=== PATIENT | male | born 1985 | race Caucasian/White ===

== ENCOUNTER 2019-01-17 10:19 | Day surgery (SDC) | payer OTHER ==
[~2019-01-17 10:19] MED LIST: BACITRACIN 50,000 UNIT in IV NORMAL SALINE 500ML BAG 500 ML IRR ONE; BUPIVACAINE-EPI 0.5%-1:200000 MPF 30 ML VIAL. INJ ONE; HYDROmorphone 2 MG/ML VIAL IV PRN; IV RINGERS,LACTATED 1000ML 1,000 ML IV SCH; LIDOCAINE 1% PF 2 ML VIAL. ID PRN; MORPHINE SULFATE 2 MG/ML VIAL. IV PRN; ONDANSETRON PF 4 MG/2 ML VIAL. IV PRN; PROCHLORPERAZINE 10 MG/2 ML VIAL. IV PRN; fentaNYL PF VIAL 100 MCG/2 ML VIAL IV PRN
[2019-01-17] MEDS ORDERED: SEVOFLURANE > 120 MINUTES. IH ONE (10:43)
[2019-01-17] MEDS ORDERED: fentaNYL PF VIAL 100 MCG/2 ML VIAL ONE ×4 (10:43→17:04)
[2019-01-17] MEDS ORDERED: ROCURONIUM 50 MG/5 ML VIAL. ONE ×2 (10:43→12:35)
[2019-01-17] MEDS ORDERED: OXYMETAZOLINE 0.05% NASAL SPRAY 30ML BOTTLE. NS ONE (10:44)
[2019-01-17] MEDS ORDERED: GLYCOPYRROLATE 1 MG/5 ML VIAL. ONE (10:44)
[2019-01-17] MEDS ORDERED: LIDOCAINE 2% PF 5 ML VIAL. ONE (10:44)
[2019-01-17] MEDS ORDERED: CHLORHEXIDINE 0.12% 15 ML MOUTHWASH. ONE (10:44)
[2019-01-17] MEDS ORDERED: MIDAZOLAM HCL/PF 2 MG/2 ML VIAL. ONE (10:44)
[2019-01-17] MEDS ORDERED: PROPOFOL 20 ML IV ONE (10:44)
[2019-01-17] MEDS ORDERED: NEOSTIGMINE METHYLSULFATE 5 MG/5 ML SYRINGE. ONE (10:44)
[2019-01-17] MEDS ORDERED: ONDANSETRON PF 4 MG/2 ML VIAL. ONE (10:45)
[2019-01-17] MEDS ORDERED: DEXAMETHASONE SOD PHOS 4 MG/ML VIAL ONE ×5 (10:45→12:20)
[2019-01-17] MEDS ORDERED: KETOROLAC 30 MG/ML VIAL. ONE (10:45)
[2019-01-17] MEDS ORDERED: HALO100A3 IM (11:06)
[2019-01-17] MEDS ORDERED: OLAN20TA3 PO (11:08)
[2019-01-17] MEDS ORDERED: MIRT30TA PO (11:08)
[2019-01-17] MEDS ORDERED: ePHEDrine PF IN SALINE 50 MG/10 ML SYRINGE. IV ONE (13:01)
[2019-01-17] MEDS ORDERED: GELATIN SPONGE SIZE 12-7MM SPONGE. ONE (13:03)
[2019-01-17] MEDS ORDERED: KETAMINE HCL IN NACL, ISO-OSM 50 MG/5 ML SYRINGE ONE (13:38)
[2019-01-17] MEDS ORDERED: ceFAZolin SODIUM 1 GM VIAL ONE (15:45)
[2019-01-17] MEDS ORDERED: LIDOCAINE 1%/EPI 1:100,000 20 ML VIAL. ONE (15:48)
[2019-01-17] MEDS ORDERED: BACITRACIN TOPICAL OINT PACKET. TP ONE (16:18)
[2019-01-17] MEDS ORDERED: BACITRACIN/POLYMYXIN B OPHTH OINTMENT 3.5GM TUBE. ONE (16:18)
[2019-01-17] MEDS: BACITRACIN TOPICAL OINT PACKET. TP ONE ×2 (16:31→16:32)
--- NOTE | 2019-01-17 16:57 | PDOC4 ---
OPERATIVE NOTE Date: Date: Jan 17, 2019 Pre-Op Diagnosis: mandibular fracture, left angle, non union non restorable teeth # 15, 17, 18 lesion on left nasal melolabial area (3mm) Post-Op Diagnosis: same Procedure Performed: percutaneous ORIF complicates approach, mandibular fracture, left angle, non union With permanent biopsy of non union non restorable teeth # 15, 17, 18 Excision of lesion on left nasal melolabial area (3mm) submitted for biopsy Surgeon: loulou Anesthesia Type: adelaide/reva Blood Loss: 50 Specimans Obtained: 1 left mandibular bone, non union 2 left naso melolabioal lesion Findings: see dictation large, slighltly mobile heme-callous Complications: none Operative Note: see dictation percutaneous ORIF complicates approach, mandibular fracture, left angle, non union With permanent biopsy of non union non restorable teeth # 15, 17, 18 Excision of lesion on left nasal melolabial area (3mm) submitted for biopsy ALYSON MCNAIR DMD Jan 17, 2019 16:57
[2019-01-17] MEDS: fentaNYL PF VIAL 100 MCG/2 ML VIAL IV PRN ×2 (17:20→17:28)
[2019-01-17 18:05] VITALS: BP 130/61
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
== END 2019-01-17 18:28 | disposition home or self-care (01) ==
LOC: SURG 10:19 → EEVIPCON 12:00 → SURG 18:28
PROVIDERS: ATTEND Dentist Oral and Maxillofacial Surgery
DX: S02.652K Fracture of angle of left mandible, subsequent encounter for fracture with nonunion (principal); F19.90 Other psychoactive substance use, unspecified, uncomplicated; F41.9 Anxiety disorder, unspecified; F32.9 Major depressive disorder, single episode, unspecified; Z86.11 Personal history of tuberculosis; X58.XXXD Exposure to other specified factors, subsequent encounter
CPT/HCPCS: 21462; 30100; 41899; 88305; 88311; A7015; C1713; J0171; J0690; J1100; J1885; J2001; J2250; J2405; J2704; J2710; J3010; J3490; J7040; J7120; A4461